=== PATIENT | female | born 1960 | race Caucasian/White ===

== ENCOUNTER → 2023-08-26 07:52 | Outpatient (REF) | payer OTHER, SELFPAY ==
[2023-08-26 08:59] LABS: Urine Albumin Negative (Neg - Trace); Urine Bilirubin Negative (Negative); Urine Character Clear (Clear); Urine Color Straw; Urine Glucose Negative (Negative); Urine Ketone Negative (Negative); Urine Leukocyte Negative (Negative); Urine Nitrite Negative (Negative); Urine Occult Blood Negative (Negative); Urine Urobilinogen Negative (Neg - 1+)
[2023-08-26 10:01] LABS: % Basophils 0.7 % (0-2); % Eosinophils 1.1 % (0-6); % Immature Granulocytes 1.6 % (0-0.5); % Monocytes 19.7 % (1.7-9.3); % Neutrophils 54.9 % (42.2-75.2); Absolute Eosinophils 0.1 10^3/uL (0-0.7); Absolute Immature Granulocytes 0.1 10^3/uL (0-0.05); Absolute Monocytes 0.9 10^3/uL (0.1-0.6); Absolute Neutrophils 2.4 10^3/uL (1.4-6.5); Hematocrit 38.7 % (37.0-47.0); Hemoglobin 13.2 g/dL (12.0-16.0); Mean Corp Hgb Conc. 34.1 g/dL (33.0-37.0); Mean Corpuscular Hgb 30.3 pg (27.0-31.0); Mean Platelet Volume 9.8 fL (7.4-10.4); Nucleated Red Blood Cells % 0 %; Platelet Count 321 10^3/uL (130-400); Red Blood Cell Count 4.35 10^6/uL (4.20-5.40); Red Cell Dist. Width 12.9 % (11.5-14.5); White Blood Cell Count 4.4 10^3/uL (4.8-10.8)
[2023-08-26 10:22] LABS: ALT (SGPT) 32 U/L (0-35); AST (SGOT) 29 U/L (14-36); Albumin 4.2 g/dl (3.5-5.0); Alkaline Phosphatase 95 U/L (38-126); Direct Bilirubin 0.5 mg/dl (0.0-0.4); HDL Cholesterol 59 mg/dl; LDL Cholesterol, Calculated 105 mg/dl; Total Bilirubin 0.6 mg/dl (0.2-1.3); Total Cholesterol 189 mg/dl (50-199); Total Protein 6.8 g/dl (6.3-8.2); Triglyceride 129 mg/dl (10-149); Very Low Density Lipoprotein 25 mg/dl (0-30)
[2023-08-26 10:42] LABS: Vitamin D, 25-OH*** 57.9 ng/mL (30-80)
[2023-08-26 10:55] LABS: TSH Reflex To Free T4 1.78 uIU/ml (0.47-4.68)
[2023-08-26 11:15] LABS: Erythrocyte Sed Rate 17 mm/hour (0-20)
[2023-08-26 12:11] LABS: Glycohemoglobin (HgbA1c) 5.7 % (4.0-5.6)
== END ==
LOC: REG 07:52
PROVIDERS: ATTENDING PHYSICIAN Student in an Organized Health Care Education/Training Program
DX: M25.522 Pain in left elbow (principal); R73.09 Other abnormal glucose; I10 Essential (primary) hypertension; E78.00 Pure hypercholesterolemia, unspecified; E55.9 Vitamin D deficiency, unspecified; N39.46 Mixed incontinence
CPT/HCPCS: 36415; 80061; 80076; 81003; 82306; 83036; 84443; 85025; 85652; 86140; 87086

== ENCOUNTER → 2023-12-18 12:00 | Outpatient (REF) | payer BC, SELFPAY ==
[2023-12-18 12:22] LABS: % Basophils 0.2 % (0-2); % Eosinophils 0.7 % (0-6); % Immature Granulocytes 0.7 % (0-0.5); % Lymphocytes 26.6 % (20.5-51.1); % Monocytes 19.3 % (1.7-9.3); % Neutrophils 52.5 % (42.2-75.2); Absolute Lymphocytes 1.1 10^3/uL (1.2-3.4); Absolute Monocytes 0.8 10^3/uL (0.1-0.6); Absolute Neutrophils 2.3 10^3/uL (1.4-6.5); Hematocrit 37.8 % (37.0-47.0); Hemoglobin 12.8 g/dL (12.0-16.0); Mean Corp Hgb Conc. 33.9 g/dL (33.0-37.0); Mean Corpuscular Hgb 29.8 pg (27.0-31.0); Mean Corpuscular Volume 88.1 fL (81.0-99.0); Nucleated Red Blood Cells % 0 %; Platelet Count 225 10^3/uL (130-400); Red Blood Cell Count 4.29 10^6/uL (4.20-5.40); Red Cell Dist. Width 13.5 % (11.5-14.5); White Blood Cell Count 4.3 10^3/uL (4.8-10.8)
[2023-12-18 12:39] LABS: IgA 129 mg/dl (70-400)
[2023-12-18 12:45] LABS: ALT (SGPT) 35 U/L (0-35); AST (SGOT) 29 U/L (14-36); Albumin 4.4 g/dl (3.5-5.0); Alkaline Phosphatase 84 U/L (38-126); Direct Bilirubin 0.3 mg/dl (0.0-0.4); Total Bilirubin 0.5 mg/dl (0.2-1.3)
[2023-12-18 13:01] LABS: Erythrocyte Sed Rate 17 mm/hour (0-20)
== END ==
LOC: REG 12:00
PROVIDERS: ATTENDING PHYSICIAN Internal Medicine Rheumatology
DX: M06.4 Inflammatory polyarthropathy (principal); R21 Rash and other nonspecific skin eruption; R76.8 Other specified abnormal immunological findings in serum
CPT/HCPCS: 36415; 80076; 82784; 83516; 85025; 85652; 86140; 86231

== ENCOUNTER → 2024-04-16 02:51 | Outpatient (REF) | payer BC, SELFPAY | LOC: CLAB 02:51 | PROVIDERS: ATTENDING PHYSICIAN Dermatology | DX: L30.8 Other specified dermatitis (principal) | CPT/HCPCS: 87070; 87205 ==

== ENCOUNTER → 2024-06-29 11:00 | Outpatient (REF) | payer BC, SELFPAY ==
[2024-06-29 12:33] LABS: % Basophils 0.4 % (0-2); % Eosinophils 1.1 % (0-6); % Immature Granulocytes 1.3 % (0-0.5); % Lymphocytes 28.9 % (20.5-51.1); % Monocytes 17.3 % (1.7-9.3); Absolute Eosinophils 0.1 10^3/uL (0-0.7); Absolute Immature Granulocytes 0.1 10^3/uL (0-0.05); Absolute Lymphocytes 1.3 10^3/uL (1.2-3.4); Absolute Monocytes 0.8 10^3/uL (0.1-0.6); Absolute Neutrophils 2.3 10^3/uL (1.4-6.5); Hemoglobin 13.2 g/dL (12.0-16.0); Mean Corp Hgb Conc. 32.2 g/dL (33.0-37.0); Mean Corpuscular Hgb 29.3 pg (27.0-31.0); Mean Corpuscular Volume 90.9 fL (81.0-99.0); Nucleated Red Blood Cells % 0 %; Platelet Count 272 10^3/uL (130-400); Red Blood Cell Count 4.51 10^6/uL (4.20-5.40); Red Cell Dist. Width 13.4 % (11.5-14.5); White Blood Cell Count 4.5 10^3/uL (4.8-10.8)
[2024-06-29 12:52] LABS: ALT (SGPT) 28 U/L (0-35); AST (SGOT) 25 U/L (14-36); Albumin 4.5 g/dl (3.5-5.0); Alkaline Phosphatase 72 U/L (38-126); Blood Urea Nitrogen 17 mg/dl (7-17); Calcium 9.6 mg/dl (8.4-10.2); Carbon Dioxide 31 mmol/L (22-30); Chloride 101 mmol/L (98-107); Glucose 101 mg/dl (70-99); Sodium 140 mmol/L (135-145); Total Bilirubin 0.4 mg/dl (0.2-1.3); Total Protein 6.9 g/dl (6.3-8.2); eGFR > 60.00
[2024-06-29 14:03] LABS: Erythrocyte Sed Rate 12 mm/hour (0-20)
[2024-07-01 05:38] LABS: Complement C3 155 mg/dl (88-165); IgA 115 mg/dl (70-400); IgG 825 mg/dl (700-1600); IgM 56 mg/dl (40-230)
[2024-07-02 00:05] LABS: ANA, IgG Reflex to HEp-2 None Detected (None Detected)
[2024-07-02 01:35] LABS: ds-DNA Ab, IgG Reflex To Titer 5 IU (0-24)
[2024-07-02 01:50] LABS: F-Actin Antibody IgG 4 Units (0-19)
[2024-07-02 08:22] LABS: Smith/RNP (ENA), IgG 2 Units (0-19)
[2024-07-02 09:21] LABS: SSA 52 (Ro)(ENA) Ab, IgG 5 AU/mL (0-40); SSA 60 (Ro)(ENA) Ab, IgG 0 AU/mL (0-40); SSB (La)(ENA) Ab, IgG 0 AU/mL (0-40)
== END ==
LOC: OLAB 11:00
PROVIDERS: ATTENDING PHYSICIAN Internal Medicine Rheumatology
DX: M06.4 Inflammatory polyarthropathy (principal); H04.123 Dry eye syndrome of bilateral lacrimal glands; Z79.899 Other long term (current) drug therapy
CPT/HCPCS: 36415; 80053; 82784; 83516; 85025; 85652; 86015; 86038; 86140; 86160; 86225; 86235

== ENCOUNTER → 2024-08-17 16:27 | Outpatient (REF) | payer SELFPAY | LOC: RAD 16:27 | PROVIDERS: ATTENDING PHYSICIAN Student in an Organized Health Care Education/Training Program | DX: R07.89 Other chest pain (principal) | CPT/HCPCS: 75571 ==

== ENCOUNTER → 2024-10-18 07:56 | Outpatient (REF) | payer BC, SELFPAY | LOC: RAD 07:56 | PROVIDERS: ATTENDING PHYSICIAN Internal Medicine Gastroenterology; FAMILY PHYSICIAN Student in an Organized Health Care Education/Training Program | DX: K76.0 Fatty (change of) liver, not elsewhere classified (principal) | CPT/HCPCS: 76700 ==

== ENCOUNTER 2024-12-20 06:17 | Day surgery (SDC) | payer BC, SELFPAY | END 2024-12-20 10:42 | disposition home or self-care (01) | LOC: GI 06:17 | PROVIDERS: ATTENDING PHYSICIAN Internal Medicine Gastroenterology | DX: Z12.11 Encounter for screening for malignant neoplasm of colon (principal); K57.30 Diverticulosis of large intestine without perforation or abscess without bleeding; K64.8 Other hemorrhoids; K31.7 Polyp of stomach and duodenum; K29.70 Gastritis, unspecified, without bleeding; D12.4 Benign neoplasm of descending colon; D12.2 Benign neoplasm of ascending colon; D12.5 Benign neoplasm of sigmoid colon; K31.89 Other diseases of stomach and duodenum; Z86.0100 Personal history of colon polyps, unspecified | CPT/HCPCS: 45385; 45380; 43239; 88305; 88342 ==

== ENCOUNTER → 2024-12-29 17:02 | Outpatient (REF) | payer BC, SELFPAY | LOC: WDC 17:02 | PROVIDERS: ATTENDING PHYSICIAN Student in an Organized Health Care Education/Training Program | DX: Z12.31 Encounter for screening mammogram for malignant neoplasm of breast (principal) | CPT/HCPCS: 77063; 77067 ==

== ENCOUNTER → 2025-01-26 10:52 | Outpatient (REF) | payer BC, OTHER, SELFPAY | LOC: WDC 10:52 | PROVIDERS: ATTENDING PHYSICIAN Student in an Organized Health Care Education/Training Program; REFERRING PHYSICIAN Physician Assistant Medical | DX: R92.8 Other abnormal and inconclusive findings on diagnostic imaging of breast (principal) | CPT/HCPCS: 76642 ==